=== PATIENT | male | born 1955 | race Caucasian/White ===

== ENCOUNTER 2019-09-05 09:06 | Inpatient (IN) | payer OTHER ==
[~2019-09-05] VITALS: Ht 182.9 cm; Wt 108.2 kg
[2019-09-05 09:10] VITALS: BP 101/62
[2019-09-05 09:37] LABS: ABSOLUTE NEUTROPHILS 8.1 thou/uL (1.4-8.2); BASOPHILS 0.3 % (0.0-2.0); EOSINOPHILS 6.5 % (0.0-3.0); HEMATOCRIT 41.5 % (42.0-52.0); HEMOGLOBIN 14.3 gm/dL (14.0-18.0); LYMPHOCYTES 10.7 % (24.0-44.0); MCH 33.2 pg (26.0-34.0); MCHC 34.6 g/dL (28.0-37.0); MCV 96.1 fL (80.0-100.0); MONOCYTES 7.6 % (1.0-8.0); PLATELET COUNT 259 thou/uL (150-400); POLYS 74.9 % (36.0-66.0); RBC 4.31 mil/uL (4.50-6.00); RDW 14.4 % (10.5-14.5); WBC 10.8 thou/uL (4.0-11.0)
[2019-09-05] MEDS ORDERED: PROSCAR 5MG TABL5 M1 PO (10:52)
[2019-09-05] MEDS ORDERED: PEPCID20 MG PO (10:52)
[2019-09-05] MEDS ORDERED: MEDROXYPROGESTE10 MG PO (10:53)
[2019-09-05] MEDS ORDERED: ATIVAN1 M1 PO (10:53)
[2019-09-05] MEDS ORDERED: HYDROCHLOROTHIA25 M2 PO (10:53)
[2019-09-05 11:22] LABS: CALCIUM 7.5 mg/dL (8.5-10.1); CREATININE 0.9 mg/dL (0.7-1.3); MAGNESIUM 1.4 mg/dL (1.8-2.4)
[2019-09-05 11:26] LABS: POTASSIUM 2.5 mmol/L (3.5-5.1)
[2019-09-05 11:58] VITALS: BP 101/65
[2019-09-05 12:53] VITALS: BP 103/60
[2019-09-05 13:10] VITALS: BP 120/66
--- NOTE | 2019-09-05 15:54 | NUR ---
1300 PT ADMITTED TO 3W, ROOM 357. PT ALERT AND ORIENTED X4, DENIES ANY SOB, NAUSEA OR VOMITING. PT LIVES IN [facility] AND HAS A STATE GUARDIAN OR SIGNS ALL HIS CONSENT. CONSENT SENT OVER TO FOR HER TO SIGN. PT ORIENTED TO ROOM =. ASSESSMENT AND ADMISSION PAPERWORK COMPLETED. PT EDUCATED ON USING THE CALL WHEN IN NEED OF ANYTHING. CALL LIGHT AND TABLE IN REACH. BED ALARM ON.
[2019-09-05 16:34] VITALS: BP 108/59
--- NOTE | 2019-09-05 17:01 | EKG ---
[facility] [place] [address] ELECTROCARDIOGRAM REPORT Name: ODETTE FUNEZ Room #: 357-P ADM IN M.R.#: [id number] Admission: 09/05/19 Attend Phys: Steven Nog MD Discharge: Date of : 59 Report #: [id number] THIS REPORT FOR: cc: Tomas Sutton MD, Dennis R MD Couchonnal, Luis F. MD ~ THIS REPORT FOR: //name// [facility] ED Test Date: 2019-09-05 Test Time: 09:59:35 Pat Name: ODETTE FUNEZ Department: Room: 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
[2019-09-05 17:12] LABS: MAGNESIUM 2.1 mg/dL (1.8-2.4)
[2019-09-05 17:13] LABS: POTASSIUM 2.9 mmol/L (3.5-5.1)
[2019-09-05 19:30] VITALS: BP 97/57
--- NOTE | 2019-09-05 23:09 | NUR ---
PT SLEEPING IN CHAIR, LIGHTS OFF, SHEET OVER HIS HEAD. PT CALM COOPERATIVE PLEASANT ASKING FOR ASSISTANCE WITH URINAL BSC OR FLUIDS. PT FINISHED BAG 3 OF POTASSIUM BUT STATED HE COULD NO LONGER COMPLETE BAG 4 OF POTASSIUM THE PAIN WAS TO DIFFICULT. HE STATED HE WOULD COOPERATE WITH PO MEDS, AFTER THE NEXT LAB LEVEL COMPLETED. PT HAS BLE EDEMA +3, DISTENDED FIRM ABD, DUSKY SKIN TONE. PT DID HAVE INTENSE AGITATED GLARE DURING CHECKING PUPILS REACTION TO LIGHT. HOWEVER PT SAYS PLEASE AND THANK YOU REPEATEDLY TO STAFF FOR CARES. PT STATED HE WILL COMPLY WITH TREATMENT BECAUSE HIS GUARDIAN WOULD BECOME UPSET.
[2019-09-06] VITALS: BP 101/60
--- NOTE | 2019-09-06 02:52 | NUR ---
PT COMPLIANT WITH PO POTASSIUM. PT WAS RESTING IN BED FOR 3 HOURS AND RETURNED TO LOUNGE CHAIR TO SLEEP.
[2019-09-06 03:45] VITALS: BP 106/65
--- NOTE | 2019-09-06 05:33 | NUR ---
PT STATED THIS AM HE WANTS TO GO HOME HE DOES NOT FEEL WELL. PT STATED HE WILL NOT TAKE HIS MEDICINE UNLESS HE GETS TO GO HOME. PT DID NOT TAKE AM PO POTASSIUM. PT EDUCATED ON IMPORTANCE AND STILL DECLINED.
[2019-09-06 06:54] LABS: HEMATOCRIT 40.6 % (42.0-52.0); HEMOGLOBIN 13.8 gm/dL (14.0-18.0); MCH 32.5 pg (26.0-34.0); MCHC 33.9 g/dL (28.0-37.0); MCV 95.9 fL (80.0-100.0); RBC 4.24 mil/uL (4.50-6.00); RDW 14.2 % (10.5-14.5); WBC 7.3 thou/uL (4.0-11.0)
[2019-09-06 07:08] LABS: CALCIUM 8.1 mg/dL (8.5-10.1); CREATININE 0.7 mg/dL (0.7-1.3)
[2019-09-06 07:15] LABS: POTASSIUM 2.5 mmol/L (3.5-5.1)
[2019-09-06 07:45] VITALS: BP 109/60
--- NOTE | 2019-09-06 09:31 | NUR ---
ASSUMED CARE OF PT APPROX 0715, UP IN CHAIR, FUSSING ABOUT NO SLEEP. REC CRITICAL K+ THIS A.M. COMM W/DR WILSON AT THE TIME OF THE CALL 0715. ASKED IF RN COULD LISTEN TO HIS HEART AND LUNGS AND HE SAID NO, I WANT TO SLEEP. WHEN PASSING MEDS, WHICH TOOK JUST A LITTLE BIT OF COERCION HE TOLD ME NO, COMPLAINED ABOUT HOW MEDS THERE WERE. GENTLE SIMPLE EDUCATION GIVEN, HE SWALLOWED THEM, THEN DEMANDED TO BE LEFT ALONE SO HE COULD REST. ALSO GAVE INFO ON K+ AND IT'S EFFECTS ON HEART. HE ASKED ME TO CLOSE THE DOOR BUT LET ME LISTEN, BRIEFLY, TO HEART AND LUNGS. REPORT [facility] STEADY AMBULATION. ENCOURAGED HIM TO USE CALL LIGHT FOR ANY NEEDS ESPECIALLY TO HEAT UP BFAST. HE ACKNOWLEDGED. ALL HE SAYS IS HE WANTS TO GO HOME. WILL CONTINUE TO MONITOR
[2019-09-06 15:36] VITALS: BP 102/64
[2019-09-06 17:10] LABS: CALCIUM 8.3 mg/dL (8.5-10.1); CREATININE 0.7 mg/dL (0.7-1.3); POTASSIUM 3.4 mmol/L (3.5-5.1)
--- NOTE | 2019-09-06 17:15 | NUR ---
INITIAL ASSESSMENT: ACE reviewed chart and spoke with nursing and attending physician. Pt was admitted from [facility] due to hypokalemia. Pt with hx of schizophrenia. [place]. Pt has a legal guardian through the [facility] Public Licensed Physical Therapy Assistant's office. ACE left voice message omi Sawyer ([phone]) to provide update. Clinical info to be faxed to [facility] tomorrow for review. Plan is for pt to return to [facility] when medically stable. ACE is following to assist as needed with discharge planning.
[2019-09-06 19:30] VITALS: BP 105/63
--- NOTE | 2019-09-06 21:47 | NUR ---
PT SITTING IN LOUNGE CHAIR, REQUESTING SNACKS. REPORTING HOPES TO DC IN AM. REPORTING HAVING A GOOD DAY SLEEPING. BLE EDEMA AND DISTENDED ABD REMAIN. PT CALM APPROPRIATE, CALLING FOR ASSISTANCE PRIOR TO AMBULATION.
[2019-09-06 22:02] LABS: CALCIUM 8.6 mg/dL (8.5-10.1); CREATININE 0.6 mg/dL (0.7-1.3); POTASSIUM 3.3 mmol/L (3.5-5.1)
--- NOTE | 2019-09-06 22:26 | NUR ---
REPORT GIVEN TO TOOTIE STANLEY, TRANSFER TO MS. CONSTRUCTION OR LEAK GANG LABORER TALKED WITH PT AND LEFT VMAIL WITH GUARDIAN.
--- NOTE | 2019-09-07 05:55 | NUR ---
PT TRANSFER FROM 3W. LYING IN BED. VOIDING PER URINAL. RESTING COMFORTABLY. NO NEEDS VOICED. CALL LIGHT WITHIN REACH. FREQUENT OBSERVATION.
[2019-09-07 06:53] LABS: CALCIUM 8.1 mg/dL (8.5-10.1); CREATININE 0.6 mg/dL (0.7-1.3); POTASSIUM 3.6 mmol/L (3.5-5.1)
[2019-09-07 08:31] VITALS: BP 148/79
[2019-09-07 08:38] VITALS: BP 148/79
[2019-09-07] MEDS ORDERED: KLOR-CON M2020 MEQ PO (14:44)
--- NOTE | 2019-09-07 16:27 | NUR ---
PT CARE ASSUMED AT 0700. A&Ox4. PT REFUSED TO TAKE HIS MORNING MEDS AFTER TALKLING TO DR. WILSON HE DID AGREE TO TAKE THEM. PT HAS BEEN DISCHARGED AND AFTER SIGNING DC PAPERWORK HE BECAME MORE COMPLIANT AND CALMER. FALL PROTOCOLL WAS IN PLACE. CALL LIGHT IN PLACE. WILL CONTINUE TO MONITOR. PT LEFT WITH WHEELCHAIR VAN.
--- NOTE | 2019-09-07 16:56 | NUR ---
DISCHARGE NOTE: ACE reviewed chart and spoke with nursing and attending physician. Pt is medically stable to discharge back to [facility] today. ACE spoke with pt's legal guardian, Rosemary, with [facility] Public Continuous Vulcanizing Machine Operator's office. Consent for discharge obtained. Rosemary requested discharge orders/summary to be faxed when available to [phone]. Ppwk faxed. automatic data processing planner faxed discharge orders/summary to [facility] and notified the facility. Wheelchair van transportation arranged through [employer] for [phone]. SW notified pt at bedside. Chart copy requested. Nursing to call report. No additional SW needs identified at this time, but is available to assist should needs arise.
== END 2019-09-07 16:33 | DRG 641 ==
LOC: ER 09:06 → 3W 11:48 → EROBS 11:48 → 3W 13:05 → 4S 09-06 23:01
PROVIDERS: Emergency Medicine; Hospitalist; ADMIT Hospitalist
DX: E87.6 Hypokalemia (principal); F20.0 Paranoid schizophrenia; E83.42 Hypomagnesemia; F17.210 Nicotine dependence, cigarettes, uncomplicated; I10 Essential (primary) hypertension; K21.9 Gastro-esophageal reflux disease without esophagitis; M19.90 Unspecified osteoarthritis, unspecified site; J32.9 Chronic sinusitis, unspecified; F41.9 Anxiety disorder, unspecified; Z79.899 Other long term (current) drug therapy; Z87.440 Personal history of urinary (tract) infections; Z88.8 Allergy status to other drugs, medicaments and biological substances
CPT/HCPCS: 10100; 10195; 10879